=== PATIENT | female | born 1960 | race Caucasian/White ===

== ENCOUNTER → 2016-06-04 | Outpatient (CLI) | payer OTHER ==
[~2016-06-04] MED LIST: ACET325T96 PO; ASCA500 PO; ATOR-54 PO; CEPH500C2 PO; CLOT1CRE3 TOP; COENCAP9 PO; DOXY100C76 PO; DXM/4 PO; LISI-461 PO; METO1TAB68 PO; MTR600X PO; MULT-506 PO; ONDA8TAB6 PO; POLY335019 PO; PROC1TAB5 PO; SENN-61 PO; SULF800T23 PO
--- NOTE | 2016-06-05 15:12 | MAMMOGRAPHY REPORT ---
BILATERAL DIGITAL SCREENING MAMMOGRAM TOMOSYNTHESIS WITH CAD: 06/04/2016 CLINICAL HISTORY: Routine screening. TECHNIQUE: Breast tomosynthesis in addition to standard 2D mammography was performed. Current study was also evaluated with a Computer Aided Detection (CAD) system. COMPARISON: Comparison is made to exams dated: 06/01/2014 mammogram, 03/30/2013 mammogram, 03/24/20 13 mammogram, 02/11/2012 mammogram - [facility], and 10/12/2008. BREAST COMPOSITION: There are scattered areas of fibroglandular density in both breasts. FINDINGS: There is an oval circumscribed 7 mm mass in the medial, far posterior left breast, only s een on the CC view, that has increased in size compared to last years mammogram. Although this coul d represent a cyst, definitive characterization with targeted ultrasound and possible additional forrest mographic views is recommended. No other suspicious mass, architectural distortion or cluster of microcalcifications is seen. IMPRESSION: ACR BI-RADS CATEGORY 0: INCOMPLETE EVALUATION: NEED ADDITIONAL IMAGING EVALUATION The 7 mm mass in the medial, far posterior left breast needs additional evaluation. The patient will be called to schedule an appointment. Approximately 10% of breast cancers are not detected with mammography. A negative mammographic repor t should not delay biopsy if a clinically suggestive mass is present. Lina Ervin M.D. ay/:06/04/2016 16:46:42 Threat Monitoring Analyst: Shanita MACARIO)(Aisha)(BD), [facility] letter sent: Addl Imaging 0 BI-RADS Code: ACR BI-RADS Category 0: Incomplete Evaluation: Need Additional Imaging Evaluation
== END | disposition home or self-care (01) ==
LOC: C.MAMM 10:31
PROVIDERS: ATTEND Obstetrics & Gynecology Gynecologic Oncology
DX: Z12.31 Encounter for screening mammogram for malignant neoplasm of breast (principal); N63 Unspecified lump in breast

== ENCOUNTER → 2016-06-11 | Outpatient (CLI) | payer OTHER ==
--- NOTE | 2016-06-11 14:55 | MAMMOGRAPHY REPORT ---
UNILATERAL LEFT DIGITAL DIAGNOSTIC MAMMOGRAM TOMOSYNTHESIS AND TARGETED LEFT ULTRASOUND: 06/11/2016 CLINICAL HISTORY: 56 year old woman called back from screening mammography for a slowly enlarging ma ss in the medial posterior left breast. TECHNIQUE: 2-D digital and tomosynthesis CC images of the left breast were obtained. COMPARISON: Comparison is made to exams dated: 06/04/2016 mammogram, 06/02/2015 mammogram, 06/01/2014 mammogram, 03/30/2013 mammogram, 02/11/2012 mammogram - [facility], and 10/12/2008. BREAST COMPOSITION: There are scattered areas of fibroglandular density in the left breast. FINDINGS: First targeted ultrasound was performed in the medial left breast to evaluate for the 7 mm circumscribed oval mass seen on recent screening mammogram that has been slowly enlarging compared to prior available exams. On visual inspection, there is a slightly raised ovoid 5 mm lesion, most likely dermal in origin. Targeted ultrasound performed in the same area in the 8:00 left breast, 9 cm from the nipple, there is an ovoid parallel circumscribed subdermal hypoechoic mass measuring 6.9 x 3.6 x 6.6 mm. No significant increased vascularity. In the adjacent dermis, there is another el ongated hypoechoic area adjacent to the intradermal mass, which could be part of the same process or represent a second, resolving epidermal inclusion cyst. However no definite punctum is identified on ultrasound, nor is one identified on visual inspection. Then a repeat left CC view including tomosynthesis images was obtained after placement of a circular mole marker overlying the dermal lesion. The mole marker encircles the mammographic mass, confirmi ng mammographicsonographic correlation. Given that no punctum was identified extending to the skin surface, a short interval follow-up left mammogram and repeat targeted ultrasound is recommended to ensure stability in 6 months. IMPRESSION: ACR-BI-RADS CATEGORY 3: PROBABLY BENIGN, TARGETED ULTRASOUND ACR-BI-RADS CATEGORY 3: HI OBABLY BENIGN The slowly enlarging mammographic mass in the 8:00 far posterior/far medial left breast most likely represents a benign epidermal inclusion cyst. However, given the interval increase in size mammogra phically, and that no punctum is identified extending to the skin surface, a short interval follow-u p is recommended to ensure stability in 6 months. These results and recommendations were discussed with the patient at the time of the exam. She tent atively scheduled a follow-up appointment prior to leaving our department. Approximately 10% of breast cancers are not detected with mammography. A negative mammographic repor t should not delay biopsy if a clinically suggestive mass is present. Lina Ervin M.D. ay/:06/11/2016 11:22:18 Practice Business Asst: Jessenia OLIVARES(R)(M), [facility] letter sent: Follow Up Recommended 3 BI-RADS Code: ACR-BI-RADS Category 3: Probably Benign Ultrasound BI-RADS: ACR-BI-RADS Category 3: P robably Benign
== END | disposition home or self-care (01) ==
LOC: C.MAMM 10:10
PROVIDERS: ATTEND Obstetrics & Gynecology Gynecologic Oncology
DX: R92.8 Other abnormal and inconclusive findings on diagnostic imaging of breast (principal); N63 Unspecified lump in breast

== ENCOUNTER → 2016-06-14 | Outpatient (CLI) | payer OTHER ==
[2016-06-14 14:37] VITALS: BP 117/80; PULSE 65; TEMP 37.2; O2SAT 99
--- NOTE | 2016-06-14 16:59 | Radiation Oncology Follow-Up ---
Radiation Oncology Follow-Up Date of Visit Jun 14, 2016. Reason For Visit One-month follow-up Radiation Completion Date 05/14/16 Diagnosis (1) Endometrial cancer, FIGO stage IIIA Onset Date: 10/07/2015 Stage: lll Permanent Comment: Menometrorrhagia Significant anemia requiring IV iron infusions Status post endometrial biopsy 09/14/2015 indeterminate Status post D&C with hysteroscopy 10/07/2015 revealing endometrioid adenocarcinoma Status post exploratory laparotomy with total abdominal hysterectomy bilateral salpingo-oophorectomy 12/02/2015 Stage pT3a NXM0 Status post chemotherapy with Taxol carboplatin planned sandwich technique Status post completion of radiation therapy 05/14/2016. Received 4500 cGy external beam therapy plus 3 HDR treatments at 400 cGy each Last Edited By: Charisse Emery on Jun 14, 2016 16:59 History of Present Illness Ms. Rea is a 56-year-old female who noted heavy menstrual over the past several years. Patient was seen by her primary care provider and found to have an iron deficiency anemia in 2014. She was treated with intravenous iron with improvement of her hemoglobin level. However due to persistent vaginal bleeding patient underwent a pelvic ultrasound on 08/05/2015. This showed the uterus to be markedly enlarged measuring 17.3 x 8.7 x 11.3 cm. There was a large echogenic masslike endometrial abnormality with marked thickening of the endometrium measuring 6.2 cm in thickness. There was also a 5.1 x 2.8 x 4.6 cm hypoechoic abnormality along the posterior aspect of the uterine body. This latter was nonspecific but could represent a fibroid. These are highly suspicious for an endometrial carcinoma and a gynecologic evaluation was recommended. Patient was seen by Dr. Duque and an endometrial curettage was performed on 11/2015. This revealed an endometrial adenocarcinoma, endometrioid type arising within complex endometrial hyper plasia with atypia. This was a FIGO grade 1 of 3. Mismatch repair proteins were tested by IHC for Valverde syndrome. Intact expression of all 4 proteins is present within the carcinoma and therefore the findings are not consistent with microsatellite instability. Case : [id number]. A CT scan of the abdomen and pelvis was performed on 10/25/2015. This showed an enlarged uterus with abnormal-appearing endometrium consistent with the history of endometrioid adenocarcinoma. There was no enlarged pelvic or abdominal lymph nodes and no evidence of metastatic disease in the abdomen or pelvis. Patient was subsequently seen at [facility] by Dr. Alexandra Poole for surgical evaluation and treatment recommendations. She recommended proceeding with a total abdominal hysterectomy and bilateral salpingo-oophorectomy. This was scheduled for 12/02/2015. Frozen sections of the uterus confirmed a FIGO grade 1 cancer with only superficial myometrial invasion and tumor extending into the lower uterine segment and likely the cervix grossly. Dr. Poole proceeded therefore with an exploratory laparotomy and total abdominal hysterectomy and BSO. The uterus was very large and without evidence of serosal disease. There were a few submucosal fibroids. Upon amputation of the uterine fundus there was gross cancer extending into the lower uterine segment and cervix. Both adnexa appeared grossly intact without evidence of abdominal spread of disease. Review of the pathologic tissue revealed the right and left tubes and ovaries negative for malignancy. The uterus revealed an endometrial adenocarcinoma, endometrioid type FIGO grade 1. The tumor measured 12.5 cm in greatest dimension. There was evidence of myometrial invasion invading 12 mm into and through a myometrial thickness of 12 mm. There was invasion of the cervical stroma and the connective tissue. There was no lymphovascular invasion. The final staging was therefore pT3a pNx stage IIIa. Accession #: [id number]. Patient was seen in referral by Dr. Laz Anderson on 01/02/2016. He discussed the case with Dr. Poole recommended adjuvant chemotherapy and adjuvant radiation. He therefore discussed with the patient the role of adjuvant therapy consisting of Paciltaxel and carboplatin. He arranged for the patient to have a port placed. He is planning to treat with chemotherapy every 3 weeks for 3 fractions. He then recommended this be followed by adjuvant radiation consisting of external radiation and internal radiation followed then by additional chemotherapy with the same combination for [address] Anderson therefore arranged for the patient to be seen in referral. It is for this reason the patient is seen in referral. Plan for sandwich therapy. After 3 cycles of Taxol carboplatin she will return to our office and underwent radiation therapy. External beam therapy completed 05/14/2016. She also had 3 HDR treatments at 400 cGy each Interim History Plan: The past month she has been steadily improving in regards to the urinary frequency and dysuria. This is nearly resolved. She no longer requires any use of [id number] AZO. She did start using her vaginal dilator. She is following a scheduled using this twice per week as instructed. The first time she use the dilator she did see a small amount of bleeding. She has not seen any further bleeding since that first episode. She denies any difficulty with bowel movements. She's had no rectal bleeding or urgency. She'll now begin the final phase of therapy. She'll be receiving chemotherapy every 3 weeks for 3 cycles. She is concerned about future side effects. She recently had a mammogram. Mason's concern over a raised area in the medial portion of the left breast. She stated that the radiologist felt this was a change of the skin. Following the mammogram she did develop some swelling in this area and tenderness. She requested that this be evaluated today. We also reviewed her mammogram that was performed 06/11/2016. This showed a slowly enlarging mass at the 8 o'clock position medial left breast most likely representing a benign epidermal inclusion cyst. However given the interval increase in size mammographically, and no Pentam is identified extending to the skin surface, a short interval follow-up was recommended for 6 months. Allergies Coded Allergies: No Known Allergies (Unverified , 10/07/15) Home Medications Scheduled Ascorbic Acid (Vitamin C), 2 TAB PO QAM Atorvastatin (Lipitor), 20 MG PO QPM Coenzyme I05-Cmhd Oil-Vitamin (Co-Q 10 [place]-3 Fish Oil), 1 CAP PO QPM Dexamethasone (Decadron), 20 MG PO DIRECTED Lisinopril (Lisinopril), 10 MG PO QPM Metoprolol Succinate (Toprol Xl), 100 MG PO QPM Multivitamin (Multivitamin), 1 TAB PO QAM Scheduled PRN Acetaminophen Tab (Tylenol), 650 MG PO Q4H PRN for Pain Ibuprofen (Ibuprofen), 600 MG PO Q6H PRN for Pain Ondansetron Hcl (Zofran), 8 MG PO TID PRN for Nausea Polyethylene Glycol 3350 (Miralax), 17 GM PO DAILY PRN for Constipation Prochlorperazine Maleate (Compazine), 1 TAB PO Q6 PRN for Nausea or Vomiting Senna (Senokot), 1 TAB PO DAILY PRN for Constipation Review of Systems Gastrointestinal: Symptoms: WNL GI Comments: "bowels feel like they're getting tired" Oral: Symptoms: No Problems Respiratory: Symptoms: WNL Urinary: Symptoms: Incontinence Comments: Urge Incontinence Skin: Symptoms: No Problems Physical Exam Vital Signs Date Time Temp Pulse Resp B/P Pulse Ox O2 Delivery O2 Flow Rate FiO2 06/14/16 14:37 37.2 65 16 117/80 99 Fatigue: None General Appearance: no apparent distress Eyes: normal inspection, EOMI ENT: normal ENT inspection, hearing grossly normal Neck: no adenopathy Respiratory/Chest: lungs clear, no respiratory distress, no accessory muscle use Breast: Breast examination reveals a cystic lesion of the medial aspect of the left breast. There is slight erythema associated. There is no fluctuance. There is mild tenderness. There are no masses of the breasts or axillary adenopathy. Cardiovascular: regular rate, rhythm, no gallop, no murmur Abdomen: non tender, soft, no organomegaly Genitourinary - Female: Normal external genitalia. Pelvic examination reveals no vaginal masses on speculum examination. She has noted to have induration and mild telangiectasia at the apex. There is no bleeding currently. There is no discharge. Bimanual examination reveals no tenderness or masses. Extremities: no pedal edema Neurologic/Psychiatric: no motor/sensory deficits, alert, normal mood/affect Skin: warm/dry Lymphatic: no adenopathy Laboratory Studies Test 05/02/16 11:44 05/07/16 14:05 05/09/16 08:26 White Blood Count 2.85 K/uL (4.8-10.8) 3.14 K/uL (4.8-10.8) Red Blood Count 3.61 M/uL (4.2-5.4) 3.61 M/uL (4.2-5.4) Hemoglobin 10.2 g/dL (12.0-16.0) 10.1 g/dL (12.0-16.0) Hematocrit 30.3 % (37-47) 31.2 % (37-47) Mean Corpuscular Volume 83.9 fL (80-100) 86.4 fL (80-100) Mean Corpuscular Hemoglobin 28.3 pg (25-34) 28.0 pg (25-34) Mean Corpuscular Hemoglobin Concent 33.7 g/dl (32-36) 32.4 g/dl (32-36) Platelet Count 169 K/uL (130-400) 144 K/uL (130-400) Mean Platelet Volume 9.9 fL (7.4-10.4) 9.6 fL (7.4-10.4) Neutrophils (%) (Auto) 73.6 % 77.8 % Lymphocytes (%) (Auto) 12.3 % 8.6 % Monocytes (%) (Auto) 9.5 % 11.1 % Eosinophils (%) (Auto) 3.2 % 1.9 % Basophils (%) (Auto) 1.4 % 0.3 % Neutrophils # (Auto) 2.10 K/uL (1.4-6.5) 2.44 K/uL (1.4-6.5) Lymphocytes # (Auto) 0.35 K/uL (1.2-3.4) 0.27 K/uL (1.2-3.4) Monocytes # (Auto) 0.27 K/uL (0.11-0.59) 0.35 K/uL (0.11-0.59) Eosinophils # (Auto) 0.09 K/uL (0-0.5) 0.06 K/uL (0-0.5) Basophils # (Auto) 0.04 K/uL (0-0.2) 0.01 K/uL (0-0.2) RDW Standard Deviation 46.6 fL (36.4-46.3) 44.9 fL (36.4-46.3) RDW Coefficient of Variation 15.0 % (11.5-14.5) 14.1 % (11.5-14.5) Immature Granulocyte % (Auto) 0.0 % 0.3 % Immature Granulocyte # (Auto) 0.00 K/uL (0.00-0.02) 0.01 K/uL (0.00-0.02) Ovalocytes 1+ Urine Color YELLOW Urine Appearance CLEAR (CLEAR) Urine pH 5.0 (4.5-7.5) Urine Specific [place] 1.000 (1.000-1.030) Urine Protein NEG (NEG) Urine Glucose (UA) NEG (NEG) Urine Ketones NEG (NEG) Urine Occult Blood NEG (NEG) Urine Nitrite NEG (NEG) Urine Bilirubin NEG (NEG) Urine Urobilinogen NEG (NEG) Urine Leukocyte Esterase MODERATE (NEG) Urine WBC (Auto) 5-10 /hpf (0-5) Urine RBC (Auto) 0-4 /hpf (0-4) Urine Hyaline Casts (Auto) 1-5 /lpf (0-5) Urine Epithelial Cells (Auto) 20-30 /lpf (0-5) Urine Bacteria (Auto) NEG (NEG) Additional Studies Mammography as reviewed above. Assessment & Plan Plan: Patient was reassured that the area on her mammogram is a cyst. He is currently showing some mild irritation. I've asked her to call if she feels that the redness has become worse. In the event that this occurs she may need an antibiotic. She'll be starting her final phase of therapy. She'll be getting chemotherapy every 3 weeks and will have 3 cycles. We asked to return to our office in 6 months. She may call if she has any questions or concerns in the interim. She'll be seeing Dr. Poole every 3 months. She'll keep the appointment for the recheck mammogram. Continue use of the vaginal dilator twice week for 10 minutes. Total Time In Follow-Up I spent 25 minutes speaking to the patient and performing examination. I spent 15 minutes reviewing information and completing this note. Copy To Arthur Page Jr,D.O.; Laz Anderson M.D.; Alexandra Pooel D.O.; Lenny Duque M.D.
== END | disposition home or self-care (01) ==
LOC: C.ONC 14:29
PROVIDERS: ATTEND Radiology Radiation Oncology
DX: Z08 Encounter for follow-up examination after completed treatment for malignant neoplasm (principal); Z92.3 Personal history of irradiation; Z85.42 Personal history of malignant neoplasm of other parts of uterus

== ENCOUNTER 2016-06-16 15:57 | Emergency (ER) | payer OTHER ==
[~2016-06-16] VITALS: Ht 154.9 cm; Wt 91.4 kg
[~2016-06-16 15:57] MED LIST changes: -CEPH500C2 PO; -CLOT1CRE3 TOP; -DOXY100C76 PO; -SULF800T23 PO
[2016-06-16 16:00] VITALS: BP 182/99; PULSE 59; TEMP 36.6; O2SAT 100; Ht 154.9 cm; Wt 91.4 kg
--- NOTE | 2016-06-16 16:29 | EMERGENCY ROOM VISIT NOTE ---
History Report prepared by Ulysses: Don Worthy Under the Supervision of: Dr. Charlie Alvarenga M.D. First contact with patient: 16:19 Chief Complaint: REFERRED BY DOCTOR Stated Complaint: LARGE SWELLING UNDER LT BREAST, VERY RED History of Present Illness The patient is a 56 year old female who presents to the Emergency Room with complaints of large edema under the left breast. She was referred here by her doctor. The patient has a history of Endometrial Uterine cancer. She was diagnosed in October 2015. The patient received chemotherapy from January 2016 to March 2016. She then received 28 radiation treatments after that that ended in May 2016. She is scheduled to begin chemotherapy again on the 25 of June. The patient had a mammogram of a cyst under her left breast that did not seem to be affecting the breast tissue. The cyst got larger, and she had an Ultrasound on it on the 11 of June. The cyst is swollen and erythematous. She denies any other complaints. Source of History: patient Onset: ADVENTURE GUIDE Position: other (Under left breast) Symptom Intensity: moderate Quality: other (edema and erythema) Timing: worsening Note: She denies any other symptoms. Review of Systems See HPI for pertinent positives & negatives. A total of 10 systems reviewed and were otherwise negative. Past Medical & Surgical Medical Problems: (1) Endometrial cancer, FIGO stage IIIA Family History Family history is unknown. Social History Smoking Status: Never Smoker Smokeless Tobacco Use: No Alcohol Use: none Drug Use: none Marital Status: single Housing Status: lives alone Occupation Status: employed Current/Historical Medications Scheduled Ascorbic Acid (Vitamin C), 2 TAB PO QAM Atorvastatin (Lipitor), 20 MG PO QPM Cephalexin Monohydrate (Keflex), 500 MG PO QID Coenzyme F03-Twoq Oil-Vitamin (Co-Q 10 [place]-3 Fish Oil), 1 CAP PO QPM Dexamethasone (Decadron), 20 MG PO DIRECTED Lisinopril (Lisinopril), 10 MG PO QPM Metoprolol Succinate (Toprol Xl), 100 MG PO QPM Multivitamin (Multivitamin), 1 TAB PO QAM Sulfa/Trimethoprim (Bactrim Ds 800MG/160MG), 1 TAB PO BID Scheduled PRN Acetaminophen Tab (Tylenol), 650 MG PO Q4H PRN for Pain Ibuprofen (Ibuprofen), 600 MG PO Q6H PRN for Pain Ondansetron Hcl (Zofran), 8 MG PO TID PRN for Nausea Polyethylene Glycol 3350 (Miralax), 17 GM PO DAILY PRN for Constipation Prochlorperazine Maleate (Compazine), 1 TAB PO Q6 PRN for Nausea or Vomiting Senna (Senokot), 1 TAB PO DAILY PRN for Constipation Allergies Coded Allergies: No Known Allergies (Unverified , 06/16/16) Physical Exam Vital Signs Date Time Temp Pulse Resp B/P Pulse Ox O2 Delivery O2 Flow Rate FiO2 06/16/16 16:00 36.6 59 18 182/99 100 Room Air Physical Exam GENERAL: Patient is a healthy-appearing well-nourished HEAD: Normocephalic atraumatic EYES: Ocular movements intact pupils equal and react to light OROPHARYNX mucous membranes are moist no exudates present no erythema or edema present NECK: Supple no nuchal rigidity CHEST: Good equal expansion. There is a quarter sized cyst under the right breast directly under a surgical spot where a previous cyst was removed. There is a quarter sized area of redness around the area. There is no evidence of infection or pus. LUNGS: Clear and equal to auscultation CARDIAC: Normal S1 and S2 ABDOMEN: Soft nontender no guarding BACK: No CVA tenderness EXTREMITIES: No pain upon palpation normal muscle strength in all groups no clubbing cyanosis or edema NEURO: Patient is following commands is answering questions appropriately. Alert and oriented x3 Cranial Nerves 2-12 grossly intact Medical Decision & Procedures Medications Administered Medications (Trade) Dose Ordered Sig/Katie Route Start Time Stop Time Status Last Admin Dose Admin Cephalexin Monohydrate (Keflex Cap) 500 mg NOW STAT PO 06/16/16 16:34 06/16/16 16:36 DC 06/16/16 16:43 500 MG Trimethoprim/ Sulfamethoxazole (Septra Ds 800/ 160MG Tab) 1 tab NOW ONCE PO 06/16/16 16:45 06/16/16 16:46 DC 06/16/16 16:43 1 TAB ED Course 1619: Past medical records reviewed. The patient was evaluated in room A2. A complete history and physical examination was performed. 1634: Keflex Cap 500 mg PO 1645: Trimethoprim/ Sulfamethoxazole 1 tab PO 1650: Upon reexamination the patient is resting comfortably. I discussed results and treatment plan with the patient. She verbalizes agreement and understanding. The patient is ready for discharge. Medical Decision Differential diagnoses include: abscess, cellulitis, and cyst. This is a 56-year-old female who presents emergency department complaining of a red an area under her right breast. The patient is currently battling uterine cancer. I will note that the patient had an ultrasound of the cyst on June 11 and at that time it appeared to be benign. In addition the patient had a cyst removed from the same exact area possibly 20 years ago. I suspect the cyst has recurred. I do not see any evidence of pus or abscess and at this point this appears to be a very small area of skin cellulitis. Based on this finding I will place the patient on Keflex and Bactrim. I also requested case management to get the patient and with the breast clinic on Saturday. Patient was in agreement with the treatment plan. Impression Primary Impression: Skin infection Scribe Attestation The scribe's documentation has been prepared under my direction and personally reviewed by me in its entirety. I confirm that the note above accurately reflects all work, treatment, procedures, and medical decision making performed by me. Departure Information Dispostion Home / Self-Care Prescriptions Sulfa/Trimethoprim (Bactrim Ds 800MG/160MG) Tab 1 TAB PO BID for 10 Days, #20 TAB Prov: Charlie Alvarenga MD 06/16/16 Cephalexin Monohydrate (KEFLEX) 500 Mg Cap 500 MG PO QID for 10 Days, #40 CAP Prov: Charlie Alvarenga MD 06/16/16 Referrals No Doctor, Assigned (PCP) Laz Anderson M.D. Forms HOME CARE DOCUMENTATION FORM, IMPORTANT VISIT INFORMATION, WORK / SCHOOL INSTRUCTIONS Patient Instructions Cellulitis - [facility], ED Infec Skin Cellulitis, [facility] Additional Instructions Follow up with Breast center on Saturday You have been examined and treated today on an emergency basis only. This is not a substitute for, or an effort to provide, complete comprehensive medical care. It is impossible to recognize and treat all injuries or illnesses in a single emergency department visit. It is therefore important that you follow up closely with Dr Anderson. Call as soon as possible for an appointment. Thank you for your time and consideration. I look forward to speaking with you again soon. Please don't hesitate to call us if you have any questions.
[2016-06-16] MEDS ORDERED: CEPHALEXIN MONOHYDRATE 250 MG CAP PO STA (16:34)
[2016-06-16] MEDS ORDERED: SULF800T23 PO (16:37)
[2016-06-16] MEDS ORDERED: CEPH500C2 PO (16:37)
[2016-06-16] MEDS ORDERED: SULFAMETHOXAZOLE/TRIMETHOPRIM DS 800/160MG TAB PO ONE (16:45)
== END 2016-06-16 16:46 | disposition home or self-care (01) ==
LOC: C.EDB 16:00 → C.EDA 16:46
DX: L08.9 Local infection of the skin and subcutaneous tissue, unspecified (principal); Z79.899 Other long term (current) drug therapy; Z85.44 Personal history of malignant neoplasm of other female genital organs; Z92.21 Personal history of antineoplastic chemotherapy; Z92.3 Personal history of irradiation

== ENCOUNTER 2016-07-15 13:48 | Emergency (ER) | payer OTHER ==
[~2016-07-15] VITALS: Ht 157.5 cm; Wt 91.8 kg
[2016-07-15 14:01] VITALS: TEMP 36.9; Ht 157.5 cm; Wt 91.8 kg
[2016-07-15] MEDS ORDERED: CLOT1CRE3 TOP (14:44)
[2016-07-15] MEDS ORDERED: DOXY100C76 PO (14:44)
--- NOTE | 2016-07-15 14:47 | EMERGENCY ROOM VISIT NOTE ---
History Report prepared by Ulysses: Marci Soler Under the Supervision of: Dr. Jerson Johnson M.D. First contact with patient: 14:33 Chief Complaint: REFERRED BY DOCTOR Stated Complaint: LARGE AREA COVERED IN RASH History of Present Illness The patient is a 56 year old female who presents to the Emergency Room with complaints of a sudden rash under her left breast that started earlier today. The rash is bumpy and erythematous, but it is not painful or pruritic. The patient states that she had an infected cyst drained from her left breast 2 days ago and everything was fine up until today. The patient states that she has stage 3 uterine cancer and that she is supposed to receive chemotherapy tomorrow. She was diagnosed with cancer last October after she got a hysterectomy. She started chemotherapy in January. She has received 32 chemotherapy treatments along with 4 surgeries. She has two chemotherapy treatments left including the treatment tomorrow. Source of History: patient Onset: earlier today Position: chest (under left breast) Quality: other (rash that is bumpy and erythematous) Timing: other (sudden) Note: no pain, no pruritus Review of Systems See HPI for pertinent positives & negatives. A total of 10 systems reviewed and were otherwise negative. Past Medical & Surgical Medical Problems: (1) Endometrial cancer, FIGO stage IIIA Family History Unknown Social History Smoking Status: Never Smoker Alcohol Use: none Drug Use: none Marital Status: single Housing Status: lives alone Occupation Status: employed Current/Historical Medications Scheduled Ascorbic Acid (Vitamin C), 2 TAB PO QAM Atorvastatin (Lipitor), 20 MG PO QPM Clotrimazole Vaginal (Clotrimazole), 1 APPLN TOP BID Coenzyme C47-Urqu Oil-Vitamin (Co-Q 10 [place]-3 Fish Oil), 1 CAP PO QPM Dexamethasone (Decadron), 20 MG PO DIRECTED Doxycycline Monohydrate (Monodox), 100 MG PO BID Lisinopril (Lisinopril), 10 MG PO QPM Metoprolol Succinate (Toprol Xl), 100 MG PO QPM Multivitamin (Multivitamin), 1 TAB PO QAM Scheduled PRN Acetaminophen Tab (Tylenol), 650 MG PO Q4H PRN for Pain Ibuprofen (Ibuprofen), 600 MG PO Q6H PRN for Pain Ondansetron Hcl (Zofran), 8 MG PO TID PRN for Nausea Polyethylene Glycol 3350 (Miralax), 17 GM PO DAILY PRN for Constipation Prochlorperazine Maleate (Compazine), 1 TAB PO Q6 PRN for Nausea or Vomiting Senna (Senokot), 1 TAB PO DAILY PRN for Constipation Allergies Coded Allergies: No Known Allergies (Unverified , 06/16/16) Physical Exam Vital Signs Date Time Temp Pulse Resp B/P Pulse Ox O2 Delivery O2 Flow Rate FiO2 07/15/16 14:59 57 18 151/80 98 Room Air 07/15/16 14:01 36.9 55 18 141/84 100 Room Air Physical Exam CONSTITUTIONAL: The patient is in mild distress. HEENT: No icterus, moist mucous membranes NECK: No meningismus, trachea is midline. CARDIOVASCULAR: Regular rate, normal perfusion RESPIRATORY: Unlabored breathing. Clear to auscultation. GASTROINTESTINAL: Non-tender GENITOURINARY: No flank tenderness MUSCULOSKELETAL: Full range of motion NEUROLOGIC: No acute gross focal deficits. PSYCHIATRIC: Normal affect SKIN: Normal for ethnicity. Rough hand-sized rash underneath left breast fold consistent with fungal infection. Medical Decision & Procedures ED Course 1435: Past medical records reviewed. The patient was evaluated in room B10. A complete history and physical examination was performed. 1450: Upon reexamination the patient is doing well. I discussed results and treatment plan with the patient. She verbalizes agreement and understanding. The patient is ready for discharge. Medical Decision Differential diagnoses include but are not limited to; tinea corporis, cellulitis. 56-year-old diagnosed with uterine cancer stage III status post 32 chemotherapy treatments presents into the emergency room for evaluation of left breast rash over the last few days after incision and drainage of abscess with Dr. Lee. No systemic complaints. No fluctuance. No pain nor pruritus. Rash consistent with tinea cellulitis less likely. Patient advised to take clotrimazole topically and if no improvement or if it gets worse to take doxycycline. She has follow-up scheduled with Dr. Lee in 1 week. Impression Primary Impression: Tinea corporis Scribe Attestation The scribe's documentation has been prepared under my direction and personally reviewed by me in its entirety. I confirm that the note above accurately reflects all work, treatment, procedures, and medical decision making performed by me. Departure Information Dispostion Home / Self-Care Prescriptions Doxycycline Monohydrate (Monodox) 100 Mg Cap 100 MG PO BID, #10 CAP Prov: Jerson Johnson MD 07/15/16 Clotrimazole Vaginal (CLOTRIMAZOLE) 1 % Cre 1 APPLN TOP BID for 10 Days, #1 TUBE 1 Refill Prov: Jerson Johnson MD 07/15/16 Referrals Arthur Page Jr,D.O. (PCP) Forms HOME CARE DOCUMENTATION FORM, IMPORTANT VISIT INFORMATION, WORK / SCHOOL INSTRUCTIONS Patient Instructions Cellulitis - [facility], ED Tinea Capitis Corporis Ringworm, My [facility] Additional Instructions Try cream first. If not improving take doxycylcine.
[2016-07-15 14:59] VITALS: BP 151/80; PULSE 57; O2SAT 98
== END 2016-07-15 15:01 | disposition home or self-care (01) ==
LOC: C.EDB 13:50
DX: B35.4 Tinea corporis (principal); C55 Malignant neoplasm of uterus, part unspecified; Z79.899 Other long term (current) drug therapy

== ENCOUNTER → 2016-12-10 | Outpatient (CLI) | payer OTHER ==
[~2016-12-10] MED LIST changes: +CLOT1CRE3 TOP; +DOXY100C76 PO
--- NOTE | 2016-12-10 14:31 | MAMMOGRAPHY REPORT ---
ULTRASOUND OF LEFT BREAST: 12/10/2016 CLINICAL HISTORY: 56-year-old woman presents for follow-up of a probable epidermal inclusion cyst in the 8:00 left breast. Since the prior diagnostic mammogram and ultrasound the epidermal inclusion cy st became superinfected, requiring several emergency department visits, incision and drainage and sub sequent surgical excision. COMPARISON: Comparison is made to exams dated: 06/11/2016 ultrasound, 06/11/2016 mammogram, 06/04/2016 [facility] mogram, 06/02/2015 mammogram, 06/01/2014 mammogram, and 03/30/2013 mammogram - [facility]. FINDINGS: There is a new skin surgical scar evident in the 8:00 left breast, 9 cm from the nipple, n ear the previously identified circumscribed subdermal versus intradermal mass seen on the ultrasound dated 06/11/2016. On ultrasound, there is mild skin thickening and a linear hypoechoic scar extendin g from the dermis into the breast parenchyma of the 8:00 left breast, 9 cm from the nipple. This is concordant with the clinical history of epidermal inclusion cyst removal. There is currently no pers istent mass or other suspicious abnormality. IMPRESSION: ACR BI-RADS CATEGORY 2: BENIGN An epidermal inclusion cyst in the 8:00 left breast has been surgically incised. There is expected s car tissue in that location. No evidence of a suspicious solid or cystic mass. Recommend return to annual screening mammography schedule. Lina Ervin M.D. ay/:12/10/2016 11:26:06 [facility] [employer] [facility]erv[facility] Keeper: Dr. Lina Ervin, [facility] letter sent: Normal 1/2 BI-RADS Code: ACR BI-RADS Category 2: Benign
== END | disposition home or self-care (01) ==
LOC: C.MAMM 10:33
PROVIDERS: ATTEND Obstetrics & Gynecology Gynecologic Oncology
DX: N60.02 Solitary cyst of left breast (principal)

== ENCOUNTER → 2016-12-13 | Outpatient (CLI) | payer OTHER ==
[2016-12-13 13:37] VITALS: BP 119/70; PULSE 56; TEMP 36.7; O2SAT 100
--- NOTE | 2016-12-13 16:09 | Radiation Oncology Follow-Up ---
Radiation Oncology Follow-Up Date of Visit Dec 13, 2016. 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 Received 4500 cGy external beam therapy plus 3 HDR treatments at 400 cGy each Last Edited By: Charisse Emery on Jun 14, 2016 16:59 History of Present Illness Ms. Rea is a 56-year-old female who noted heavy menstrual over the past several years. Patient was seen by her primary care provider and found to have an iron deficiency anemia in 2014. She was treated with intravenous iron with improvement of her hemoglobin level. However due to persistent vaginal bleeding patient underwent a pelvic ultrasound on 08/05/2015. This showed the uterus to be markedly enlarged measuring 17.3 x 8.7 x 11.3 cm. There was a large echogenic masslike endometrial abnormality with marked thickening of the endometrium measuring 6.2 cm in thickness. There was also a 5.1 x 2.8 x 4.6 cm hypoechoic abnormality along the posterior aspect of the uterine body. This latter was nonspecific but could represent a fibroid. These are highly suspicious for an endometrial carcinoma and a gynecologic evaluation was recommended. Patient was seen by Dr. Duque and an endometrial curettage was performed on 11/2015. This revealed an endometrial adenocarcinoma, endometrioid type arising within complex endometrial hyper plasia with atypia. This was a FIGO grade 1 of 3. Mismatch repair proteins were tested by IHC for Valverde syndrome. Intact expression of all 4 proteins is present within the carcinoma and therefore the findings are not consistent with microsatellite instability. Case : [id number]. A CT scan of the abdomen and pelvis was performed on 10/25/2015. This showed an enlarged uterus with abnormal-appearing endometrium consistent with the history of endometrioid adenocarcinoma. There was no enlarged pelvic or abdominal lymph nodes and no evidence of metastatic disease in the abdomen or pelvis. Patient was subsequently seen at [facility] by Dr. Alexandra Poole for surgical evaluation and treatment recommendations. She recommended proceeding with a total abdominal hysterectomy and bilateral salpingo-oophorectomy. This was scheduled for 12/02/2015. Frozen sections of the uterus confirmed a FIGO grade 1 cancer with only superficial myometrial invasion and tumor extending into the lower uterine segment and likely the cervix grossly. Dr. Poole proceeded therefore with an exploratory laparotomy and total abdominal hysterectomy and BSO. The uterus was very large and without evidence of serosal disease. There were a few submucosal fibroids. Upon amputation of the uterine fundus there was gross cancer extending into the lower uterine segment and cervix. Both adnexa appeared grossly intact without evidence of abdominal spread of disease. Review of the pathologic tissue revealed the right and left tubes and ovaries negative for malignancy. The uterus revealed an endometrial adenocarcinoma, endometrioid type FIGO grade 1. The tumor measured 12.5 cm in greatest dimension. There was evidence of myometrial invasion invading 12 mm into and through a myometrial thickness of 12 mm. There was invasion of the cervical stroma and the connective tissue. There was no lymphovascular invasion. The final staging was therefore pT3a pNx stage IIIa. Accession #: [id number]. Patient was seen in referral by Dr. Laz Anderson on 01/02/2016. He discussed the case with Dr. Poole recommended adjuvant chemotherapy and adjuvant radiation. He therefore discussed with the patient the role of adjuvant therapy consisting of Paciltaxel and carboplatin. He arranged for the patient to have a port placed. He is planning to treat with chemotherapy every 3 weeks for 3 fractions. He then recommended this be followed by adjuvant radiation consisting of external radiation and internal radiation followed then by additional chemotherapy with the same combination for [address] Anderson therefore arranged for the patient to be seen in referral. It is for this reason the patient is seen in referral. Plan for sandwich therapy. After 3 cycles of Taxol carboplatin she will return to our office and underwent radiation therapy. External beam therapy completed 05/14/2016. She also had 3 HDR treatments at 400 cGy each. Interim History She had been doing well until one week ago. The urinary and bowel symptoms she had at the time of treatment resolve without difficulty. Last week she began to have burning on urination. She has noted discomfort with placement of the dilator. She also sees a small amount of spotting following use of the dilator. That also seemed to increase in amount over this past week. With urination she'll have discomfort and it feels similar to the pain that she had one under radiation. Because she has discomfort with urination she has been avoiding drinking a lot of fluids. She is seen pink discoloration with bleeding. She is uncertain if this is vaginal or urinary. She is been seen regularly by Dr. Poole. She is also followed medical oncology. She had a recheck CT of the abdomen and pelvis 10/01/2016. There was no findings to indicate metastatic disease within the abdomen or pelvis. Allergies Coded Allergies: No Known Allergies (Unverified , 06/16/16) Home Medications Scheduled Ascorbic Acid (Vitamin C), 2 TAB PO QAM Atorvastatin (Lipitor), 20 MG PO QPM Coenzyme L22-Nqqg Oil-Vitamin (Co-Q 10 [place]-3 Fish Oil), 1 CAP PO QPM Lisinopril (Lisinopril), 10 MG PO QPM Metoprolol Succinate (Toprol Xl), 100 MG PO QPM Multivitamin (Multivitamin), 1 TAB PO QAM Scheduled PRN Acetaminophen Tab (Tylenol), 650 MG PO Q4H PRN for Pain Ibuprofen (Ibuprofen), 600 MG PO Q6H PRN for Pain Polyethylene Glycol 3350 (Miralax), 17 GM PO DAILY PRN for Constipation Senna (Senokot), 1 TAB PO DAILY PRN for Constipation Review of Systems Gastrointestinal: Symptoms: WNL GI Comments: Rectal spotting that she relates to hemorrhoids;No fiber supplements; Oral: Symptoms: No Problems Respiratory: Symptoms: WNL Urinary: Symptoms: Incontinence Comments: See below notations Skin: Symptoms: No Problems Other Skin Symptoms: Pt didn't visualize her nigel area; Physical Exam Vital Signs Date Time Temp Pulse Resp B/P (MAP) Pulse Ox O2 Delivery O2 Flow Rate FiO2 12/13/16 13:37 36.7 56 20 119/70 100 Fatigue: None General Appearance: no apparent distress Eyes: normal inspection, EOMI ENT: normal ENT inspection, hearing grossly normal Neck: no adenopathy, thyroid normal Respiratory/Chest: lungs clear, no respiratory distress, no accessory muscle use Cardiovascular: regular rate, rhythm, no gallop, no murmur Abdomen: non tender, soft Genitourinary - Female: Normal external genitalia. There is mild foreshortening of the vagina. There is telangiectasia at the apex. There are no visible or palpable lesions of the vagina. There is mild tenderness anterior near to the urethra on palpation. There was no pain on bimanual examination. Extremities: no pedal edema Neurologic/Psychiatric: no motor/sensory deficits, alert, normal mood/affect Skin: warm/dry Laboratory Studies Test 12/13/16 14:[address] scan 10/01/2016 as reviewed above. Assessment & Plan Plan: We'll check a urinalysis and urine [employer]. She'll be notified as to results. This be treated accordingly if needed. We discussed the telangiectasia and the intermittent spotting. She will hold use of the dilator for one week. We discussed insertion of the dilator and adequate lubrication. She'll do sitz baths to help with perineal discomfort. I've instructed her to use adult wipes which are free of perfumes and alcohol. Continue regular follow -up with gynecologic oncology and medical oncology as well as her primary care physician. I asked her to return to our office in 6 months. She will call if she has any questions or concerns in the interim. Total Time In Follow-Up I spent 20 minutes speaking to the patient and performing examination. I spent 15 minutes reviewing information and completeness note. Copy To Arthur Page Jr,D.O.; Laz Anderson M.D.; Alexandra Poole D.O.; Lenny Duque M.D.
[2016-12-13 19:47] LABS: URINE APPEARANCE CLOUDY (CLEAR); URINE BILIRUBIN NEG (NEG); URINE COLOR YELLOW; URINE EPITHELIAL CELL AUTO 20-30 /lpf (0-5); URINE NITRITE NEG (NEG); URINE PH 6.5 (4.5-7.5); URINE SPECIFIC GRAVITY 1.013 (1.000-1.030); UROBILINOGEN NEG (NEG); ZZUR CULT IF INDIC CLEAN CATCH YES
[2016-12-13 19:48] LABS: MANUAL MICROSCOPIC REQUIRED? NO; REVIEW REQ? YES
== END | disposition home or self-care (01) ==
LOC: C.ONC 12:59
PROVIDERS: ATTEND Physician Assistant Medical
DX: Z08 Encounter for follow-up examination after completed treatment for malignant neoplasm (principal); Z92.3 Personal history of irradiation; Z85.42 Personal history of malignant neoplasm of other parts of uterus

== ENCOUNTER → 2017-03-05 | Outpatient (CLI) | payer OTHER ==
[~2017-03-05] MED LIST changes: -CLOT1CRE3 TOP; -DOXY100C76 PO; -DXM/4 PO; -ONDA8TAB6 PO; -PROC1TAB5 PO
--- NOTE | 2017-03-05 15:35 | DIAGNOSTIC IMAGING REPORT ---
R VENOUS DOPPLER UPR EXT UNIL CLINICAL HISTORY: 57 years-old Female presenting with RT ARM SWELLING, NECK SWELLING,LYMPHADENOPATHY. TECHNIQUE: Real-time grayscale and color and spectral Doppler ultrasound imaging of the veins of the right upper extremity was performed. Compression and augmentation were also utilized. COMPARISON: None. FINDINGS: Right: Internal jugular vein: Patent. Subclavian vein: Patent. A port is noted adjacent to the subclavian vein. Axillary vein: Patent. Basilic vein: Patent. Brachial vein: Patent. Cephalic vein: Patent. Radial vein: Patent. Ulnar vein: Patent. Other: No sonographic abnormality at the site of clinical interest in the right neck. IMPRESSION: 1. No evidence of deep venous thrombosis. 2. No sonographic abnormality of the site of clinical interest in the right neck. Electronically signed by: Rufino Walton M.D. 03/05/2017 3:34 PM Dictated Date/Time: 03/05/2017 3:32 PM
--- NOTE | 2017-03-05 15:55 | DIAGNOSTIC IMAGING REPORT ---
RIGHT NECK ULTRASOUND CLINICAL HISTORY: Neck swelling. Lymphadenopathy. COMPARISON STUDY: None. TECHNIQUE: Sonography of the right aspect of the neck at site of swelling was performed. Comparison sonography of the left aspect of the neck was performed as well. FINDINGS: No mass, fluid collection or pathologically enlarged right-sided cervical lymph node was identified by sonography. IMPRESSION: No sonographic abnormality within the right neck. No enlarged lymph nodes identified by sonography. If persistent symptoms, a CT of the neck with contrast could be obtained. Electronically signed by: Tucker Romo M.D. 03/05/2017 3:53 PM Dictated Date/Time: 03/05/2017 3:52 PM
== END | disposition home or self-care (01) ==
LOC: C.ULTR 14:49
PROVIDERS: ATTEND Internal Medicine
DX: R59.1 Generalized enlarged lymph nodes (principal)

== ENCOUNTER → 2017-05-15 | Outpatient (CLI) | payer OTHER ==
[~2017-05-15] MED LIST changes: +ACET-1693 PO; -ACET325T96 PO; +METO-479 PO; -METO1TAB68 PO
[2017-05-15 14:21] VITALS: BP 117/81; PULSE 56; TEMP 36.6; O2SAT 99
--- NOTE | 2017-05-15 16:30 | Radiation Oncology Follow-Up ---
Radiation Oncology Follow-Up Date of Visit May 15, 2017. Reason For Visit Recurrent dysuria Radiation Completion Date finished 05-14-2016 Diagnosis (1) Endometrial cancer, FIGO stage IIIA Status: Resolved Onset Date: 10/07/2015 Stage: lll (A) Permanent Comment: Menometrorrhagia Significant anemia requiring IV iron infusions Status post endometrial biopsy 09/14/2015 indeterminate Status post D&C with hysteroscopy 10/07/2015 revealing endometrioid adenocarcinoma Status post exploratory laparotomy with total abdominal hysterectomy bilateral salpingo-oophorectomy 12/02/2015 Stage pT3a NXM0 Status post chemotherapy with Taxol carboplatin planned sandwich technique Status post completion of radiation therapy 05/14/2016. Received 4500 cGy external beam therapy plus 3 HDR treatments at 400 cGy each Last Edited By: Charisse Emery on Jun 14, 2016 16:59 History of Present Illness Ms. Rea noted heavy menstrual over the past several years. Patient was seen by her primary care provider and found to have an iron deficiency anemia in 2014. She was treated with intravenous iron with improvement of her hemoglobin level. However due to persistent vaginal bleeding patient underwent a pelvic ultrasound on 08/05/2015. This showed the uterus to be markedly enlarged measuring 17.3 x 8.7 x 11.3 cm. There was a large echogenic masslike endometrial abnormality with marked thickening of the endometrium measuring 6.2 cm in thickness. There was also a 5.1 x 2.8 x 4.6 cm hypoechoic abnormality along the posterior aspect of the uterine body. This latter was nonspecific but could represent a fibroid. These are highly suspicious for an endometrial carcinoma and a gynecologic evaluation was recommended. Patient was seen by Dr. Duque and an endometrial curettage was performed on 11/2015. This revealed an endometrial adenocarcinoma, endometrioid type arising within complex endometrial hyper plasia with atypia. This was a FIGO grade 1 of 3. Mismatch repair proteins were tested by IHC for Valverde syndrome. Intact expression of all 4 proteins is present within the carcinoma and therefore the findings are not consistent with microsatellite instability. Case : [id number]. A CT scan of the abdomen and pelvis was performed on 10/25/2015. This showed an enlarged uterus with abnormal-appearing endometrium consistent with the history of endometrioid adenocarcinoma. There was no enlarged pelvic or abdominal lymph nodes and no evidence of metastatic disease in the abdomen or pelvis. Patient was subsequently seen at [facility] by Dr. Alexandra Poole for surgical evaluation and treatment recommendations. She recommended proceeding with a total abdominal hysterectomy and bilateral salpingo-oophorectomy. This was scheduled for 12/02/2015. Frozen sections of the uterus confirmed a FIGO grade 1 cancer with only superficial myometrial invasion and tumor extending into the lower uterine segment and likely the cervix grossly. Dr. Poole proceeded therefore with an exploratory laparotomy and total abdominal hysterectomy and BSO. The uterus was very large and without evidence of serosal disease. There were a few submucosal fibroids. Upon amputation of the uterine fundus there was gross cancer extending into the lower uterine segment and cervix. Both adnexa appeared grossly intact without evidence of abdominal spread of disease. Review of the pathologic tissue revealed the right and left tubes and ovaries negative for malignancy. The uterus revealed an endometrial adenocarcinoma, endometrioid type FIGO grade 1. The tumor measured 12.5 cm in greatest dimension. There was evidence of myometrial invasion invading 12 mm into and through a myometrial thickness of 12 mm. There was invasion of the cervical stroma and the connective tissue. There was no lymphovascular invasion. The final staging was therefore pT3a pNx stage IIIa. Accession #: [id number]. Patient was seen in referral by Dr. Laz Anderson on 01/02/2016. He discussed the case with Dr. Poole recommended adjuvant chemotherapy and adjuvant radiation. He therefore discussed with the patient the role of adjuvant therapy consisting of Paciltaxel and carboplatin. He arranged for the patient to have a port placed. He is planning to treat with chemotherapy every 3 weeks for 3 fractions. He then recommended this be followed by adjuvant radiation consisting of external radiation and internal radiation followed then by additional chemotherapy with the same combination for [address] Anderson therefore arranged for the patient to be seen in referral. It is for this reason the patient is seen in referral. Plan for sandwich therapy. After 3 cycles of Taxol carboplatin she will return to our office and underwent radiation therapy. External beam therapy completed 05/14/2016. She also had 3 HDR treatments at 400 cGy each. Interim History Patient had been seen 12/13/2016. At that time she had symptoms of urinary tract infection. Urinalysis and culture was obtained. This did reveal urinary tract infection. Cause was Escherichia coli. She was treated with Cipro. This was sensitive to the medication. She again had urinary tract infection symptoms in March she was treated with an antibiotic for 7 days and the symptoms resolved. She was seen at the [facility] urgent care center. Last week once again she had urinary symptoms. She was seen and the urine didn't show bacteria and blood. She was started on an antibiotic. The culture showed no growth and she was called and told to stop the antibiotic. She followed these instructions. The symptoms have resolved. She is concerned as to why she continues to have recurrent symptoms. She stated that she has been instructed by gynecology to use the small dilator. She had been using the small then medium. The medium caused discomfort. He also advised her not to use K-Y jelly. She is using Joseph glide. She stated that gynecology also recommended natural vegetable oil could also be used. She plans to change management coordinator to a vegetable oil. She feels her bladder symptoms are less if she keeps her bladder empty. We also discussed irritants to the bladder. She is going to try to be more careful about food intake that could cause irritation of the bladder. Allergies Coded Allergies: No Known Allergies (Unverified , 06/16/16) Home Medications Scheduled Ascorbic Acid (Vitamin C), 2 TAB PO QAM Atorvastatin (Lipitor), 20 MG PO QPM Coenzyme [id number] Oil-Vitamin (Co-Q 10 [place]-3 Fish Oil), 1 CAP PO QPM Lisinopril (Lisinopril), 10 MG PO QPM Metoprolol Succinate (Toprol Xl), 100 MG PO QPM Multivitamin (Multivitamin), 1 TAB PO QAM Scheduled PRN Acetaminophen Tab (Tylenol), 650 MG PO Q4H PRN for Pain Ibuprofen (Ibuprofen), 600 MG PO Q6H PRN for Pain Polyethylene Glycol 3350 (Miralax), 17 GM PO DAILY PRN for Constipation Review of Systems Gastrointestinal: Symptoms: WNL Oral: Symptoms: No Problems Respiratory: Symptoms: WNL Urinary: Symptoms: Nocturia Comments: nocturia times 1 -4 times, occ dribbling, denies burning on urination now Skin: Symptoms: No Problems Other Skin Symptoms: using sween cream to perineum several times a day Physical Exam Vital Signs Date Time Temp Pulse Resp B/P (MAP) Pulse Ox O2 Delivery O2 Flow Rate FiO2 05/15/17 14:21 36.6 56 20 117/81 99 Fatigue: None General Appearance: no apparent distress Eyes: normal inspection, EOMI ENT: normal ENT inspection, hearing grossly normal Respiratory/Chest: lungs clear, no respiratory distress, no accessory muscle use Cardiovascular: regular rate, rhythm, no gallop, no murmur Abdomen: non tender, soft, no organomegaly Extremities: no pedal edema Neurologic/Psychiatric: no motor/sensory deficits, alert, normal mood/affect Pain Management Patient Reports Pain: No Side: Bilateral Patient Preferred Pain Scale: 0 - 10 Initial Pain Intensity: 0.0 Pain Management Plan She currently is without pain. See interim history Pathology Pathology Results: not applicable Imaging Imaging Studies: not applicable Assessment & Plan Plan: We discussed the issue of recurrent dysuria. 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 She is going to be careful about foods that she eats that could be irritating to the bladder. In order to make the diagnosis I've asked her to call her primary care physician and obtained a referral to urology. She stated that she'll be in contact with her primary care physician and have this set up. She follows with the [email or web address] system and we'll therefore likely be referred to Dr. Delgado. We asked her to return to our office in December which we the time of her annual visit. She may call if she has any questions or concerns in the interim. Total Time In Follow-Up I spent 20 minutes speaking to the patient and performing examination. I spent 10 minutes reviewing information in completing this note. Copy To Lidya Anderson M.D.; Kristie Delgado MD; Alexandra Poole D.O.
== END | disposition home or self-care (01) ==
LOC: C.ONC 14:08
PROVIDERS: ATTEND Physician Assistant Medical
DX: Z08 Encounter for follow-up examination after completed treatment for malignant neoplasm (principal); Z92.3 Personal history of irradiation; Z85.89 Personal history of malignant neoplasm of other organs and systems